=== PATIENT | male | born 1960 | race Caucasian/White ===

== ENCOUNTER 2016-05-15 17:28 | Observation (INO) | payer OTHER ==
[2016-05-15] MEDS ORDERED: IPRATROPIUM-ALBUTEROL 3 ML NEB INHALATION STA (17:45)
--- NOTE | 2016-05-15 17:48 | ED ---
SOB HPI - General Chief Complaint: Shortness of Breath Stated Complaint: EKG Changes,JASON Time Seen by Provider: 05/15/16 17:28 Source: patient, RN/MD, EMS, RN notes reviewed Mode of arrival: EMS - History of Present Illness Initial Comments: This is a 56-year-old male who was brought in by EMS from his doctor's office where he presented with complaints of shortness of breath is been intermittent for the past 2 days EKG was on the office which apparently shows some ST depression in the anterolateral leads. Patient denies any overt chest pain. He was given 4 baby aspirin some nitroglycerin with no change in EKG. He states he does not feel short of breath this time. He is a former smoker quit 4 months ago after 15 years of smoking. Is a family history his dad age of 64 heart attack when he also apparently was morbidly obese. Patient states he is feeling essentially unchanged from when he left the doctor's office at this time. He denies any cough or phlegm production. He's never been diagnosed with COPD or any type of lung disease MD Complaint: shortness of breath - Related Data Home Medications Medication Instructions Recorded Confirmed Aspirin 81 mg PO DAILY 05/15/16 05/15/16 Krill Oil 500 mg PO DAILY 05/15/16 05/15/16 Multivitamins, Thera [Multivitamin] 1 tab PO DAILY 05/15/16 05/15/16 Nitroglycerin Sl Tabs [Nitrostat] 0.4 mg SUBLINGUAL Q5M PRN 05/15/16 05/15/16 Omeprazole [PriLOSEC] 40 mg PO DAILY 05/15/16 05/15/16 Saw Walford 500 mg PO DAILY 05/15/16 05/15/16 Allergies Allergy/AdvReac Type Severity Reaction Status Date / Time No Known Allergies Allergy Unverified 05/15/16 18:12 Review of Systems ROS Statement: Those systems with pertinent positive or pertinent negative responses have been documented in the HPI. ROS Other: All systems not noted in ROS Statement are negative. General Exam - General Exam Comments Initial Comments: Is a well developed well-nourished awake alert oriented 3 male General appearance: alert, in no apparent distress Head exam: Present: atraumatic, normocephalic, normal inspection Eye exam: Present: normal appearance, PERRL, EOMI. Absent: scleral icterus, conjunctival injection, periorbital swelling ENT exam: Present: normal exam, mucous membranes moist Neck exam: Present: normal inspection. Absent: tenderness, meningismus, lymphadenopathy Respiratory exam: Present: normal lung sounds bilaterally, decreased breath sounds. Absent: respiratory distress, wheezes, rales, rhonchi, stridor Cardiovascular Exam: Present: regular rate, normal rhythm, normal heart sounds. Absent: systolic murmur, diastolic murmur, rubs, gallop, clicks GI/Abdominal exam: Present: soft, normal bowel sounds. Absent: distended, tenderness, guarding, rebound, rigid Extremities exam: Present: normal inspection, full ROM, normal capillary refill. Absent: tenderness, pedal edema, joint swelling, calf tenderness Back exam: Present: normal inspection Neurological exam: Present: alert, oriented X3, CN II-XII intact Psychiatric exam: Present: normal affect, normal mood Skin exam: Present: warm, dry, intact, normal color. Absent: rash Course Vital Signs 05/15/16 05/15/16 05/15/16 17:48 17:54 17:55 Temperature 99.1 F Pulse Rate 94 91 Respiratory 22 20 20 Rate Blood Pressure 130/67 130/67 O2 Sat by Pulse 95 95 Oximetry 05/15/16 05/15/16 05/15/16 18:32 18:46 18:55 Temperature Pulse Rate 72 83 76 Respiratory 20 Rate Blood Pressure 124/78 O2 Sat by Pulse Oximetry 05/15/16 19:30 Temperature Pulse Rate 73 Respiratory 16 Rate Blood Pressure 130/79 O2 Sat by Pulse 96 Oximetry Medical Decision Making - Medical Decision Making Patient he gets some relief in the updraft she is feeling better he will however be admitted for evaluation of EKG changes and dyspnea - Lab Data Result diagrams: 05/15/16 17:50 05/15/16 17:50 Lab Results 05/15/16 05/15/16 05/15/16 Range/Units 17:50 17:50 17:50 WBC 9.8 (3.8-10.6) k/uL RBC 4.96 (4.30-5.90) m/uL Hgb 14.8 (13.0-17.5) gm/dL Hct 44.1 (39.0-53.0) % MCV 89.0 (80.0-100.0) fL MCH 29.9 (25.0-35.0) pg MCHC 33.6 (31.0-37.0) g/dL RDW 13.5 (11.5-15.5) % Plt Count 280 (150-450) k/uL Neutrophils % 75 % Lymphocytes % 16 % Monocytes % 6 % Eosinophils % 1 % Basophils % 1 % Neutrophils # 7.3 (1.3-7.7) k/uL Lymphocytes # 1.6 (1.0-4.8) k/uL Monocytes # 0.6 (0-1.0) k/uL Eosinophils # 0.1 (0-0.7) k/uL Basophils # 0.1 (0-0.2) k/uL PT (9.0-12.0) sec INR (<1.1) APTT (22.0-30.0) sec D-Dimer (<0.60) mg/L FEU Sodium 139 (137-145) mmol/L Potassium 4.5 (3.5-5.1) mmol/L Chloride 104 (98-107) mmol/L Carbon Dioxide 24 (22-30) mmol/L Anion Gap 11 mmol/L BUN 15 (9-20) mg/dL Creatinine 0.77 (0.66-1.25) mg/dL Est GFR (MDRD) Af Amer >60 (>60 ml/min/1.73 sqM) Est GFR (MDRD) Non-Af >60 (>60 ml/min/1.73 sqM) Glucose 129 H (74-99) mg/dL Calcium 9.1 (8.4-10.2) mg/dL Magnesium 1.6 (1.6-2.3) mg/dL Total Bilirubin 0.5 (0.2-1.3) mg/dL AST 37 (17-59) U/L ALT 48 (21-72) U/L Alkaline Phosphatase 61 (38-126) U/L Total Creatine Kinase 292 H (55-170) U/L CK-MB (CK-2) 2.1 (0.0-2.4) ng/mL CK-MB (CK-2) Rel Index 0.7 Troponin I <0.012 (0.000-0.034) ng/mL NT-Pro-B Natriuret Pep pg/mL Total Protein 7.0 (6.3-8.2) g/dL Albumin 4.3 (3.5-5.0) g/dL 05/15/16 05/15/16 Range/Units 17:50 17:50 WBC (3.8-10.6) k/uL RBC (4.30-5.90) m/uL Hgb (13.0-17.5) gm/dL Hct (39.0-53.0) % MCV (80.0-100.0) fL MCH (25.0-35.0) pg MCHC (31.0-37.0) g/dL RDW (11.5-15.5) % Plt Count (150-450) k/uL Neutrophils % % Lymphocytes % % Monocytes % % Eosinophils % % Basophils % % Neutrophils # (1.3-7.7) k/uL Lymphocytes # (1.0-4.8) k/uL Monocytes # (0-1.0) k/uL Eosinophils # (0-0.7) k/uL Basophils # (0-0.2) k/uL PT 10.3 (9.0-12.0) sec INR 1.0 (<1.1) APTT 23.4 (22.0-30.0) sec D-Dimer 0.22 (<0.60) mg/L FEU Sodium (137-145) mmol/L Potassium (3.5-5.1) mmol/L Chloride (98-107) mmol/L Carbon Dioxide (22-30) mmol/L Anion Gap mmol/L BUN (9-20) mg/dL Creatinine (0.66-1.25) mg/dL Est GFR (MDRD) Af Amer (>60 ml/min/1.73 sqM) Est GFR (MDRD) Non-Af (>60 ml/min/1.73 sqM) Glucose (74-99) mg/dL Calcium (8.4-10.2) mg/dL Magnesium (1.6-2.3) mg/dL Total Bilirubin (0.2-1.3) mg/dL AST (17-59) U/L ALT (21-72) U/L Alkaline Phosphatase (38-126) U/L Total Creatine Kinase (55-170) U/L CK-MB (CK-2) (0.0-2.4) ng/mL CK-MB (CK-2) Rel Index Troponin I (0.000-0.034) ng/mL NT-Pro-B Natriuret Pep 18 pg/mL Total Protein (6.3-8.2) g/dL Albumin (3.5-5.0) g/dL - EKG Data -: EKG Interpreted by Me EKG shows normal: sinus rhythm (EKG shows sinus rhythm of 87 appear of 18 QRS duration 98 daily since QTC of 382/459 incomplete right bundle-branch block nonspecific ST configuration. This is compared with the one submitted from EMS and also submitted from the office. The changes are still present as though seen in the office EKG and EMS EKG.) - Radiology Data Radiology results: report reviewed (Review the x-ray shows no acute findings.), image reviewed Disposition Clinical Impression: Atypical chest pain, Bronchospasm, ST segment changes on electrocardiogram Disposition: ADMITTED IP TO THIS [facility] Condition: Stable
[2016-05-15 18:02] LABS: Basophils # (A) 0.1 k/uL (0-0.2); Basophils % (A) 1 %; CH 30.6; CHCM 34.5; Eosinophils # (A) 0.1 k/uL (0-0.7); Eosinophils % (A) 1 %; HCT 44.1 % (39.0-53.0); HDW 2.62; HGB 14.8 gm/dL (13.0-17.5); Luc # (Auto) 0.22; Luc % (Auto) 2; Lymphocytes # (A) 1.6 k/uL (1.0-4.8); Lymphocytes % (A) 16 %; MCH 29.9 pg (25.0-35.0); MCHC 33.6 g/dL (31.0-37.0); Mean Platelet Volume 7.2; Monocytes # (A) 0.6 k/uL (0-1.0); Monocytes % (A) 6 %; Neutrophils # (A) 7.3 k/uL (1.3-7.7); Neutrophils % (A) 75 %; RBC 4.96 m/uL (4.30-5.90); RDW 13.5 % (11.5-15.5); WBC 9.8 k/uL (3.8-10.6); WBC (Perox) 10.13
[2016-05-15 18:10] LABS: ALT 48 U/L (21-72); AST 37 U/L (17-59); Alkaline Phosphatase 61 U/L (38-126); Anion Gap 11 mmol/L; Blood Urea Nitrogen 15 mg/dL (9-20); Calcium 9.1 mg/dL (8.4-10.2); Carbon Dioxide 24 mmol/L (22-30); Chloride 104 mmol/L (98-107); Glucose 129 mg/dL (74-99); Magnesium 1.6 mg/dL (1.6-2.3); Non-African American GFR(MDRD) >60 (>60 ml/min/1.73 sqM); Potassium 4.5 mmol/L (3.5-5.1); Sodium 139 mmol/L (137-145); Total Bilirubin 0.5 mg/dL (0.2-1.3)
--- NOTE | 2016-05-15 18:12 | XR ---
EXAMINATION TYPE: XR chest 2V DATE OF EXAM: 05/15/2016 6:03 PM COMPARISON: NONE HISTORY: Difficulty breathing and short of breath TECHNIQUE: Frontal and lateral views of the chest are obtained. FINDINGS: Heart and mediastinum are normal. Lungs are clear. Diaphragm is normal. There are chest le ads. Bony thorax is intact. IMPRESSION: No active cardiopulmonary disease. Normal heart.
[2016-05-15 18:16] LABS: Partial Thromboplastin Time 23.4 sec (22.0-30.0); Prothrombin Time 10.3 sec (9.0-12.0)
[2016-05-15 18:24] LABS: Creatine Kinase 292 U/L (55-170)
[2016-05-15 18:36] LABS: Creatine Kinase MB 2.1 ng/mL (0.0-2.4); Troponin I <0.012 ng/mL (0.000-0.034)
[2016-05-15] MEDS ORDERED: HEPARIN SODIUM,PORCINE 5,000 UNIT/ML 1 ML VIAL IV ONE (19:49)
[2016-05-15] MEDS ORDERED: NITROGLYCERIN SL TABS 0.4 MG TAB SUBLINGUAL PRN (19:49)
[2016-05-15] MEDS ORDERED: HEPARIN SODIUM,PORCINE/D5W PMX 25,000 UNIT in DEXTROSE/WATER 1 500ML.BAG IV SCH (20:00)
[2016-05-15] MEDS: SODIUM CHLORIDE 0.9% 1,000 ML IV SCH (20:28)
[2016-05-15 21:18] VITALS: BMI 26.6
[2016-05-16 00:27] LABS: Creatine Kinase 223 U/L (55-170)
[2016-05-16 00:40] LABS: Creatine Kinase MB 1.5 ng/mL (0.0-2.4); Troponin I <0.012 ng/mL (0.000-0.034)
[2016-05-16] MEDS: NITROGLYCERIN OINT 1 INCH/GM PACKET TOPICAL SCH ×5 (02:59→23:07)
[2016-05-16 03:18] LABS: Cholesterol 166 mg/dL (<200); HDL Cholesterol 62 mg/dL (40-60); Triglycerides 44 mg/dL (<150)
[2016-05-16] MEDS ORDERED: HEPARIN SODIUM,PORCINE 5,000 UNIT/ML 1 ML VIAL IV PRN (04:19)
[2016-05-16 06:46] LABS: Creatine Kinase 210 U/L (55-170)
[2016-05-16 06:58] LABS: Creatine Kinase MB 1.3 ng/mL (0.0-2.4); Troponin I <0.012 ng/mL (0.000-0.034)
--- NOTE | 2016-05-16 10:17 | ECHOF ---
Referral Reason:Physical chest pain, EKG changes to be done in a.m MEASUREMENTS -------- HEIGHT: 170.2 cm WEIGHT: 77.1 kg BP: 108/62 RVIDd: 2.4 cm (< 3.3) IVSd: 0.8 cm (0.6 - 1.1) LVIDd: 4.8 cm (3.9 - 5.3) LVPWd: 0.9 cm (0.6 - 1.1) IVSs: 1.7 cm LVIDs: 2.3 cm LVPWs: 1.9 cm LA Diam: 2.9 cm (2.7 - 3.8) LAESV Index (A-L): 13.17 ml/m Ao Diam: 2.7 cm (2.0 - 3.7) AV Cusp: 2.1 cm (1.5 - 2.6) LA Diam: 2.4 cm (2.7 - 3.8) MV EXCURSION: 11.800 mm (> 18.000) MV EF SLOPE: 93 mm/s (70 - 150) EPSS: 0.5 cm MV E Marino: 0.62 m/s MV DecT: 305 ms MV A Marino: 0.80 m/s MV E/A Ratio: 0.77 FINDINGS -------- Sinus rhythm. This was a technically good study. Left ventricular wall thickness is normal. Overall left ventricular systolic function is low-normal with, an EF between 50 - 55 %. The right ventricle is normal in size. Normal LA size by volume 22+/-6 ml/m2. The right atrium is normal in size. Aortic valve is trileaflet and is mildly thickened. The mitral valve leaflets are mildly thickened. Mild mitral annular calcification present. Trace tricuspid regurgitation present. Pulmonic valve appears structurally normal. The aortic root size is normal. Normal inferior vena cava with normal inspiratory collapse consistent with estimated right atrial pressure of 5 mmHg. Echo free space may represent effusion or a pericardial fat pad. CONCLUSIONS -------- 1. Sinus rhythm. 2. Mild mitral annular calcification present. 3. Trace tricuspid regurgitation present. 4. Pulmonic valve appears structurally normal. 5. The aortic root size is normal. 6. Normal inferior vena cava with normal inspiratory collapse consistent with estimated right atrial pressure of 5 mmHg. 7. Echo free space may represent effusion or a pericardial fat pad. 8. This was a technically good study. 9. Left ventricular wall thickness is normal. 10. Overall left ventricular systolic function is low-normal with, an EF between 50 - 55 %. 11. The right ventricle is normal in size. 12. Normal LA size by volume 22+/-6 ml/m2. 13. The right atrium is normal in size. 14. Aortic valve is trileaflet and is mildly thickened. 15. The mitral valve leaflets are mildly thickened. FI[employer] HARVEST CONTRACTOR: Natalya Graf RDCS
--- NOTE | 2016-05-16 10:51 | CONS ---
DATE OF CONSULTATION: Mr. Wadsworth is a 56-year-old gentleman who is seen for cardiac evaluation. This patient came to the emergency room with the complaint of shortness of breath over the last 2 to 3 days. Patient gives a history that he has a history of claustrophobia and whenever he gets into elevator or some other close space he will get short of breath. EKG showed some ST segment changes so patient came over here. He did not complain of any chest pain. Patient has a history of smoking for 15 years and he quit 4 months ago. His dad into the age of 64 from a heart attack. Patient denies any history of diabetes, hypertension, or hyperlipidemia. Home medications include aspirin, Prilosec, and Nitrostat. Review of systems is otherwise unremarkable. Physical examination at present reveals a 56-year-old gentleman who does not appear to be in any acute distress. Blood pressure is 122/74 mmHg. HEENT examination is negative. Neck is supple. There is no increase in jugular venous pressure. Both the carotid pulses are felt. There is no bruit. Chest is symmetrical. HEART: The PMI is not felt. First and second heart sounds are normal. There is no evidence of any murmur. Lungs are clinically clear to auscultation and percussion. Abdomen is soft. Liver and spleen are not enlarged. Bowel sounds are heard. EXTREMITIES: Peripheral pulsations are 2+. There is no evidence of any edema or phlebitis. Neurological examination is grossly normal. EKG shows a normal sinus rhythm with some nonspecific ST-T changes. Patient's cardiac enzymes are normal. Patient's LDL level is 95, HDL level is 62. FINAL IMPRESSION: Symptoms of shortness of breath, not definitely related to exertion, rule out any evidence of any significant coronary artery disease. RECOMMENDATIONS: Patient will be evaluated with a stress echocardiographic study. If the stress echocardiographic study is normal, patient can be discharged home.
--- NOTE | 2016-05-16 11:53 | ECHOS ---
DATE OF SERVICE: 05/16/2016 AGE: 56Y SEX: M HT: 67 WT: 170 lbs. Protocol Ari: X Others: Stress Echo Stage: II Dur. of Exercise: 5:30 *Heart Rate Blood Pressure *Rest: 100 Rest: 112/52 * *Max. Achieved: 148 Maximum BP: 175/69 85% PMHR: 139 100% PMHR: 164 *METS: 6.9 INDICATIONS: Shortness of breath. MEDICATIONS: Omeprazole and aspirin. Baseline EKG shows sinus rhythm, normal axis, normal intervals. Patient exercised on Ari protocol for a total of 5-1/2 minutes achieving 7 METs, 90% of predicted maximal heart rate without chest pain. At peak exercise, patient developed worsening shortness of breath and [address] segment depression in the inferolateral leads. Baseline echo shows normal left ventricular size, wall motion and systolic function. Postexercise, there is hypokinesis involving inferior wall suggestive of stress-induced ischemia in right coronary artery distribution. CONCLUSIONS: 1. Poor exercise tolerance. 2. Abnormal stress test by EKG criteria. 3. Abnormal stress echocardiogram showing ischemia involving the right coronary artery.
[2016-05-16] MEDS ORDERED: NITROGLYCERIN SL TABS 0.4 MG TAB SUBLINGUAL PRN (12:40)
[2016-05-16] MEDS ORDERED: ALPRAZolam 0.5 MG TAB PO PRN (12:40)
[2016-05-16] MEDS ORDERED: ASPIRIN 325 MG TAB PO STA (12:40)
[2016-05-16] MEDS ORDERED: ALPRAZolam 0.25 MG TAB PO PRN (12:40)
[2016-05-16] MEDS ORDERED: SODIUM CHLORIDE 0.9% 1,000 ML in EMPTY BAG 1 BAG IV ONE (12:40)
[2016-05-16] MEDS ORDERED: ATORVASTATIN 80 MG TAB PO STA (12:40)
[2016-05-16] MEDS: ASPIRIN 325 MG TAB PO SCH (13:27)
[2016-05-16] MEDS ORDERED: LIDOCAINE 2% INJ 20 MG/ML (20 ML MDV) ONE (14:00)
[2016-05-16] MEDS ORDERED: MIDAZOLAM 2 MG/2 ML VIAL ONE (14:08)
[2016-05-16] MEDS ORDERED: diphenhydrAMINE 50 MG/ML 1 ML VIAL ONE (14:08)
[2016-05-16] MEDS ORDERED: fentaNYL (PF) 50 MCG/ML 2 ML AMP ONE (14:08)
[2016-05-16] MEDS ORDERED: SODIUM CHLORIDE 0.9% 1,000 ML IV ONE (14:42)
[2016-05-16] MEDS ORDERED: MIDAZOLAM 2 MG/2 ML VIAL IVP ONE (14:48)
[2016-05-16] MEDS ORDERED: fentaNYL (PF) 50 MCG/ML 2 ML AMP IV ONE (14:51)
[2016-05-16] MEDS ORDERED: LIDOCAINE 2% INJ 20 MG/ML SQ ONE (14:55)
[2016-05-16] MEDS ORDERED: IOHEXOL 350 MG/ML 100 ML BOTTLE INJ ONE (15:10)
[2016-05-16] MEDS ORDERED: RX INFO: IV CONTRAST WAS GIVEN 1 EACH MISC MISCELLANE PRN (15:12)
--- NOTE | 2016-05-16 17:36 | CC ---
DATE OF SERVICE: This patient was admitted with symptoms of intermittent shortness of breath, underwent a stress test. Stress test showed a ST segment depression suggestive of ischemia and there was inferior wall motion abnormality suggestive of ischemia. In view of that, the patient was recommended to have a cardiac catheterization for definitive diagnosis. PROCEDURE: The right groin was prepped and draped in the usual manner and the skin was infiltrated with 2% Xylocaine. The right femoral artery was entered using Seldinger technique. A #6 [place] sheath was placed in. Selective coronary angiography was then performed in multiple projections and the left ventricular pressures were obtained. Sheath was removed and good hemostasis was achieved with the use of Angio-Seal. HEMODYNAMICS: Left ventricular end-diastolic pressure is 16 mmHg and no gradient was noted across the aortic valve. LEFT MAIN: Left main coronary artery is normal and patent. LEFT ANTERIOR DESCENDING CORONARY ARTERY: LAD is a good caliber blood vessel and gives rise to good-sized diagonal branch. There is a mild irregularity in the LAD. CIRCUMFLEX CORONARY ARTERY: Circumflex coronary artery gives wishes to good-sized obtuse marginal branches. Circumflex coronary artery and its branches are normal. RIGHT CORONARY ARTERY: Right coronary artery is normal. FINAL IMPRESSION: This study reveals minimal irregularity in LAD. Circumflex and right coronary arteries are normal. RECOMMENDATIONS: Continue medical treatment and coronary risk factor modification.
--- NOTE | 2016-05-16 17:55 | HP ---
DATE OF ADMISSION: 05/15/2016 HISTORY AND PHYSICAL/DISCHARGE SUMMARY: This is a 56-year-old gentleman came into the emergency room with complaints of difficulty in breathing and where he feels like the room is closed in upon him. Patient has a history of claustrophobia and states that feeling was similar to that. Has happened multiple times in the last few days and hence came into the emergency room with concern for heart attack. In the emergency room, patient underwent echocardiogram. It did show sinus tachycardia with right axis deviation and incomplete right bundle branch block. Patient thereafter was seen by the coning machine operator. Underwent echocardiogram, which showed EF of 55% to 60% on no other abnormalities were noted. Patient underwent a stress echo however, due to poor exercise tolerance, patient was thereafter taken to cardiac catheterization lab. During the time of my examination, the patient is seen after cardiac cath. The patient denies having any pain in his groin. Denies having chest pain, difficulty in breathing, nausea, vomiting. His episode of where the room is closing upon him and difficulty breathing has not happened in the last 2 hours. Patient states that he does have a remote history of smoking, has not smoked in over 4 months. Denies having any cough, fever, chills, nausea, vomiting. Patient states that he was told his TSH is high. Patient states that he has been excessively worrying about driving to [place] tomorrow and then he was also worried about his granddaughter moving out of the house. He has a lot of stresses at home and at work. Past medical history includes history of ( ) and GERD. PAST SURGICAL HISTORY: Left shoulder surgery. REVIEW OF SYSTEMS: Fourteen-point review of system was done; none pertinent other than was mentioned. ALLERGIES: No known drug allergies. MEDICATIONS: Include: 1. Aspirin. 2. Prilosec. FAMILY HISTORY: Not pertinent to current admission. Denies having premature heart disease or strokes. PHYSICAL EXAMINATION: VITAL SIGNS: Temperature 98.3, heart rate is 80. Her respiratory rate is 18, blood pressure 104/73 GENERAL: Alert and oriented x3, in no distress. HEART: S1, S2 heard. Regular rate and rhythm. No murmurs appreciated. Neck is supple. No JVD. LUNGS: Good air movement. Clear to auscultation. No rhonchi or wheezing noted. ABDOMEN: Soft, nontender, no organomegaly. LOWER EXTREMITIES: No edema noted. LABORATORY DATA: Sodium 139, potassium 4.5, chloride 104, bicarb 24, BUN 15, creatinine 0.77, hemoglobin 14.8, hematocrit 44.1, platelets of 280. ASSESSMENT AND PLAN: 1. Atypical dyspnea, chest pain equivalent. Cardiac catheterization was negative. 2. The patient likely has anxiety. 3. History of gastroesophageal reflux disease. PLAN: 1. Patient will be given Ativan. I did discuss to use medication to get out of the episode of anxiety/panic attack. 2. Patient may benefit from being started on SSRI. However, will defer this to Dr. Nakia Sánchez. 3. Apparently the patient was informed that his thyroid level was not in the normal range; however, will defer this to Dr. Sánchez for ongoing care as well as we do not have thyroid level at this time.
[2016-05-16] MEDS: SODIUM CHLORIDE 0.9% 1,000 ML IV SCH (20:49)
[2016-05-16] MEDS ORDERED: MELATONIN 3 MG TABLET PO SCH (21:00)
[2016-05-17 06:04] VITALS: RESP 18
[2016-05-17] MEDS: NITROGLYCERIN OINT 1 INCH/GM PACKET TOPICAL SCH ×2 (06:05→12:53)
[2016-05-17 08:23] VITALS: TEMP 98.4
[2016-05-17] MEDS: ASPIRIN 325 MG TAB PO SCH (08:40)
[2016-05-17 12:37] VITALS: BP 115/77; PULSE 68
--- NOTE | 2016-05-17 15:31 | DS ---
DATE OF ADMISSION: 05/15/2016 DATE OF DISCHARGE: 05/17/2016 This is a 56-year-old gentleman who was admitted to the hospital with complaints of dyspnea associated with some chest pain. Patient stated that it felt like it was some degree of claustrophobia, which he does have a history of. Patient states that he has had significant anxiety in the recent few weeks with multiple issues at home and at work. Patient states that he does tend to overthink on a similar topic and has had issues with mild anxiety in the past as well. In the ER on initial evaluation, patient's EKG was noted to have some right axis deviation with an incomplete right bundle branch block. Cardiac enzymes x3 were negative. Initial echocardiogram did not reveal wall motion abnormalities and an ejection fraction of 55% to 60%. Patient, however, was recommended to undergo a stress echo due to poor exercise tolerance and patient getting another episode of dyspnea during the stress echo. Patient underwent a cardiac catheterization which revealed mild disease. I did discuss patient's issues with him and stated that his symptoms are very consistent with almost a panic attack kind of scenario. Stated that his excessive worrying would be helped with an agent like SSRI; however, I would like to defer that to Dr. Sánchez. PHYSICAL EXAM: GENERAL: Appears alert, oriented x3. NECK: Supple. No JVD. HEENT: Atraumatic, normocephalic. Pupils are equal, round and reactive to light and accommodation. CHEST: S1, S2 heard. Regular rate and rhythm. No murmurs appreciated. ABDOMEN: Soft, nontender. No organomegaly. Bowel sounds intact. LUNGS: Good air entry. Clear to auscultation. LOWER EXTREMITIES: No edema noted. SITE OF THE CARDIAC CATH: Groin appears within normal limits. DISCHARGE DIAGNOSES: 1. Atypical chest pain. ACS was ruled out. Cardiac cath is negative. 2. Panic attacks/anxiety? 3. Dysthymia. 4. Hypothyroidism with a TSH around 15. 5. History of gastroesophageal reflux disease. 6. Long history of tobacco use. PLAN: Patient was started on Synthroid 75 mcg. Patient was given a prescription for Ativan and recommended pros and cons of using Ativan and restrictions in regards to driving. Patient was recommended to follow up with Dr. Sánchez within a week.
--- NOTE | 2016-05-17 16:06 | PN ---
This patient was admitted yesterday with symptoms of exertional shortness of breath. The patient underwent a cardiac catheterization, which did not show any significant coronary artery disease. The patient's exact symptoms of shortness of breath are unclear. He does have a history of smoking. We will recommend to do pulmonary function test as an outpatient. Patient's vital signs are stable. First and second heart sounds are normal. Lungs are clear to auscultation and percussion. Right groin is normal. Patient will be discharged out and will follow up as an outpatient.
== END 2016-05-17 12:53 | disposition home or self-care (01) ==
LOC: EC 17:28 → 3OBS 19:55
PROVIDERS: ADMIT Hospitalist; ATTEND Hospitalist
DX: R07.89 Other chest pain (principal); F41.0 Panic disorder [episodic paroxysmal anxiety]; F34.1 Dysthymic disorder; E03.9 Hypothyroidism, unspecified; K21.9 Gastro-esophageal reflux disease without esophagitis; R06.00 Dyspnea, unspecified; R06.02 Shortness of breath; R94.31 Abnormal electrocardiogram [ECG] [EKG]; J98.01 Acute bronchospasm; Z79.82 Long term (current) use of aspirin; Z79.899 Other long term (current) drug therapy; Z87.891 Personal history of nicotine dependence; Z82.49 Family history of ischemic heart disease and other diseases of the circulatory system
CPT/HCPCS: 96376 ×3; 99285 ×2; 93005 ×2; 96365; 96366 ×2; 36415; 94640; 93017; 93306; 93350; 93458; 85379; 84439; 83880; 80061; 80053; 84443; 82550 ×2; 82553 ×2; 83735; 84484 ×2; 85025; 85610; 85730 ×2; 71020; G0378 ×3; C1760; C1894; C1769; J2001; J2250; J1644 ×3; Q9967; J3010

== ENCOUNTER 2016-05-18 07:30 | Emergency (ER) | payer OTHER ==
--- NOTE | 2016-05-18 08:05 | ED ---
Recheck HPI - General Chief Complaint: Recheck/Abnormal Lab/Rx Stated Complaint: post op infection Time Seen by Provider: 05/18/16 07:53 Source: patient, RN notes reviewed Mode of arrival: ambulatory Limitations: no limitations - History of Present Illness Initial Comments: This is a 56-year-old male who had a cardiac catheterization done 2 days ago who presents with complaints of right groin pain and ecchymosis. He denies any fevers chills or sweats no chest pain or shortness of breath or other symptoms. MD Complaint: wound re-check - Related Data Home Medications Medication Instructions Recorded Confirmed Aspirin 81 mg PO DAILY 05/15/16 05/18/16 Krill Oil 500 mg PO DAILY 05/15/16 05/18/16 Multivitamins, Thera [Multivitamin] 1 tab PO DAILY 05/15/16 05/18/16 Nitroglycerin Sl Tabs [Nitrostat] 0.4 mg SUBLINGUAL Q5M PRN 05/15/16 05/18/16 Omeprazole [PriLOSEC] 40 mg PO DAILY 05/15/16 05/18/16 Saw [place] 500 mg PO DAILY 05/15/16 05/18/16 Previous Rx's Medication Instructions Recorded LORazepam [Ativan] 0.5 mg PO TID PRN #30 tab 05/16/16 Levothyroxine Sodium [Synthroid] 75 mcg PO DAILY #30 tab 05/17/16 Allergies Allergy/AdvReac Type Severity Reaction Status Date / Time No Known Allergies Allergy Verified 05/18/16 07:34 Review of Systems ROS Statement: Those systems with pertinent positive or pertinent negative responses have been documented in the HPI. ROS Other: All systems not noted in ROS Statement are negative. Past Medical History Past Medical History: GERD/Reflux History of Any Multi-Drug Resistant Organisms: None Reported Past Surgical History: Heart Catheterization, Orthopedic Surgery Additional Past Surgical History / Comment(s): left knee arthroscopy and left shoulder surgery Past Anesthesia/Blood Transfusion Reactions: No Reported Reaction Past Psychological History: No Psychological Hx Reported Smoking Status: Former smoker Past Alcohol Use History: None Reported Past Drug Use History: None Reported - Past Family History Father Family Medical History: Coronary Artery Disease (CAD), Myocardial Infarction ([place] ) Additional Family Medical History / Comment(s): at age 64 from [place] with morbid obesity General Exam - General Exam Comments Initial Comments: This is a well-developed well-nourished awake alert oriented 3 male Limitations: no limitations General appearance: alert, in no apparent distress Head exam: Present: atraumatic, normocephalic, normal inspection Eye exam: Present: normal appearance, EOMI Neck exam: Present: normal inspection GI/Abdominal exam: Present: soft. Absent: bruit, pulsatile mass, hernia Extremities exam: Present: full ROM, tenderness, normal capillary refill, other (Examination the right groin reveals ecchymosis above and below the inguinal ligament. No definite pulsation no thrill or bruits appreciated. The genitalia appears be within normal limits.) Neurological exam: Present: alert, oriented X3, CN II-XII intact Psychiatric exam: Present: normal affect, normal mood Skin exam: Present: warm, dry, other (Ecchymosis as stated above) Course Vital Signs 05/18/16 07:32 Temperature 99.5 F Pulse Rate 76 Respiratory 20 Rate Blood Pressure 122/72 O2 Sat by Pulse 98 Oximetry Medical Decision Making - Medical Decision Making I did discuss the findings with the patient and his patient will be discharged home with care as are the described for him. The presentation is consistent with a post-catheterization hematoma no evidence of any other untoward effects - Radiology Data Radiology results: report reviewed (I did review the imaging and report no acute findings other than the localized hematoma.), image reviewed Disposition Clinical Impression: Groin hematoma Disposition: HOME SELF-CARE Condition: Good Instructions: Hematoma (ED)
--- NOTE | 2016-05-18 09:32 | US ---
EXAMINATION TYPE: US lower ext pseudo artery RT DATE OF EXAM: 05/18/2016 9:22 AM COMPARISON: NONE CLINICAL HISTORY: Pain. Pt states increased bruising and swelling right groin s/p heart cath 2 days a go IMPRESSION: No evidence of pseudoaneurysm, hematoma, or AV fistula within right groin
[2016-05-18 09:59] VITALS: BP 118/78; PULSE 77; RESP 17; TEMP 98.7
== END 2016-05-18 09:58 | disposition home or self-care (01) ==
LOC: EC 07:30
DX: I97.630 Postprocedural hematoma of a circulatory system organ or structure following a cardiac catheterization (principal); Z79.82 Long term (current) use of aspirin; Z79.899 Other long term (current) drug therapy; K21.9 Gastro-esophageal reflux disease without esophagitis; Z87.891 Personal history of nicotine dependence; Z82.49 Family history of ischemic heart disease and other diseases of the circulatory system
CPT/HCPCS: 93975; 99283

== ENCOUNTER → 2016-07-23 | Outpatient (CLI) | payer OTHER ==
--- NOTE | 2016-07-24 07:43 | US ---
EXAMINATION TYPE: US abdomen complete DATE OF EXAM: 07/23/2016 12:30 PM COMPARISON: NONE CLINICAL HISTORY: R10.84 Abd Pain. chest pain EXAM MEASUREMENTS: Liver Length: 12.4 cm Gallbladder Wall: 0.2 cm CBD: 0.4 cm Spleen: 9.3 cm Right Kidney: 10.8 x 5.8 x 5.9 cm Left Kidney: 10.7 x 6.3 x 6.1 cm Pancreas: not seen due to midline bowel gas Liver: limited vis to intercostal window, visualized portions wnl Gallbladder: No stones seen Evidence for sonographic Butler's sign: No CBD: wnl Spleen: wnl Right Kidney: No hydronephrosis or masses seen Left Kidney: No hydronephrosis or masses seen Upper IVC: wnl Abd Aorta: proximal portion not seen due to midline bowel gas The liver is homogenous. The intrahepatic portion of the IVC and proximal abdominal aorta are within normal limits. There is no evidence of cholelithiasis. Common bile duct is unremarkable. The visu alized portions of the pancreas are homogenous. The spleen is unremarkable. Kidneys are symmetric a nd free of hydronephrosis. No renal lesions are seen. IMPRESSION: 1. Examination limited due to bowel gas. 2. No suspicious acute changes identified.
== END | disposition home or self-care (01) ==
LOC: RADUSWWP 12:07
PROVIDERS: ATTEND Internal Medicine
DX: R10.84 Generalized abdominal pain (principal)
CPT/HCPCS: 76700

== ENCOUNTER → 2016-07-29 | Outpatient (CLI) | payer OTHER ==
--- NOTE | 2016-07-29 21:02 | NM ---
EXAMINATION TYPE: NM hepatobiliary w EF DATE OF EXAM: 07/29/2016 4:58 PM COMPARISON: NONE HISTORY: TECHNIQUE: After the intravenous administration of 5.49 mCi Tc 99m Mebrofenin hepatobiliary scintigra phy is performed. Immediate images post injection. FINDINGS: There is satisfactory initial accumulation of tracer by the liver. The gallbladder is visualized wit hin 10 minutes. The small bowel activity is noted within 90 minutes. At one hour 8 ounces of oral e nsure plus is given to mimic CCK and gallbladder ejection fraction is calculated at 78 %, in the norm al range. Therefore there is no scintigraphic evidence of cystic or common bile duct obstruction to suggest acute cholecystitis or gallbladder dyskinesia. IMPRESSION: No focal liver defect. No evidence of cystic duct or common bile duct obstruction. Normal gallbladder ejection fraction.
== END ==
LOC: RADNMMAIN 14:49
PROVIDERS: ATTEND Internal Medicine
DX: R10.84 Generalized abdominal pain (principal)
CPT/HCPCS: 78226; A9537

== ENCOUNTER → 2017-01-22 | Outpatient (CLI) | payer OTHER ==
--- NOTE | 2017-01-23 09:24 | CTL ---
EXAMINATION TYPE: CT Low Dose Lung DATE OF EXAM ORDERED: 01/22/2017 HISTORY: . Lung cancer screening CT DLP: [address] CTDI: 2.6 mGy Automated exposure control for dose reduction was used. SCREENING VISIT: Initial COMPARISON: None TECHNIQUE: Low dose computed tomography scan was performed through the chest at 1 mm thick sections a nd reconstructed images in the coronal plane at [address] DIAGNOSTIC QUALITY: Satisfactory FINDINGS: LUNG NODULES: None. There is a 0.3 cm nodule within the right middle lobe. Series 3 image 33 lung windows. There is a 0.4 cm nodule within the lingula. Series 3 image 29 lung windows. LUNGS: COPD: Severity: None Fibrosis: Severity: None Lymph nodes: None Other findings: None RIGHT PLEURAL SPACE: Effusion: None Calcification: None Thickening: None Pneumothorax: None LEFT PLEURAL SPACE: Effusion: None Calcification: None Thickening: None Pneumothorax: None HEART: Heart Size: Normal Coronary calcification: None Pericardial effusion: None OTHER FINDINGS: Upper abdomen: Normal Bony thorax: Normal Supraclavicular region: No suspicious adenopathy is evident. A few scattered small lymph nodes are in the axillary regions, not enlarged by CT criteria. Other: The ascending thoracic aorta at the level the main pulmonary artery is 3.2 cm patent main pulm onary artery the bifurcation is 2.2 cm. IMPRESSION: 1. Couple of punctate nodular densities within the mid lungs bilaterally. FOLLOW UP CT CHEST RECOMMENDATION: Follow-up screening chest [address] LUNG RAD: Lung-Rad 2 Benign Appearance or Behavior
== END | disposition home or self-care (01) ==
LOC: RADCTMAIN 18:35
PROVIDERS: ATTEND Internal Medicine Sleep Medicine
DX: Z12.2 Encounter for screening for malignant neoplasm of respiratory organs (principal); J98.4 Other disorders of lung; Z87.891 Personal history of nicotine dependence

== ENCOUNTER → 2019-03-24 | Outpatient (CLI) | payer OTHER ==
--- NOTE | 2019-03-24 16:27 | XR ---
EXAMINATION TYPE: XR knee limited LT DATE OF EXAM: 03/24/2019 CLINICAL HISTORY: Left knee pain after fall injury 2 days ago. TECHNIQUE: Frontal and lateral views of the left knee are obtained. COMPARISON: None. FINDINGS: There is no acute fracture/dislocation evident in left knee mild to moderate tricompartmen t joint space loss. The overlying soft tissue appears unremarkable. IMPRESSION: There is no acute fracture or dislocation in the left knee.
== END | disposition home or self-care (01) ==
LOC: RADXRYALE 16:01
PROVIDERS: ATTEND Internal Medicine
DX: M25.562 Pain in left knee (principal)

== ENCOUNTER → 2022-10-10 | Outpatient (CLI) | payer BC ==
--- NOTE | 2022-10-10 18:10 | CA ---
Exercise Stress Test Report Name: Ernie Wadsworth Exam Date: 10/10/2022 09:15 Exam Location: [facility] Stress Ht (in): 67 Wt (lb): 190 BSA: 1.98 Ordering Phys: Nakia Sánchez MD Referring Phys: SRUTHI,, Technologist: Fransisco Ledbetter Age: 62 Gender: M : 1960 Procedure CPT: Indications: R07.89 other chest pain ICD-10 Codes: Patient History: DIFFICULTY IN BREATHING, FAMILY HX OF HEART DISEASE, PRIOR CARDIAC CATH, FORMER SMOKER - QUIT 7 YEARS (1 PPD X 25 YEARS) Medications: OMEPRAZOLE,,,,,, LEVOTHYROXINE,,,,,, MULTIVITAMIN,,,,,, ASA 81 mg,,,,,, KRILL OIL,,,,, Meds past 24 hrs: Pretest Chest Pain: STRESS TEST Ari Protocol Exercise Duration (min:sec): 09:[address] Depressions (mm): 0 Angina Score: 0 Hooker Score: 9 Resting HR (bpm): 84 Peak HR (bpm): 135 Resting BP (mmHg): 102 / 78 Peak BP (mmHg): 166 / 82 MPHR: 158 Target HR: 134 % MPHR: 85 METS: 10.3 Total Dose: Peak Dose: Atropine: Double Product: 84054 BP Response: Stress Termination: TARGET HR REACHED/MAX EXERTION Stress Symptoms: NO SYMPTOMS Stress Summary: The patient's target heart rate was achieved, The hemodynamic response to exercise was normal ECG ANALYSIS Resting ECG: Sinus rhythm. Normal conduction. No arrhythmias. Normal repolarization. Stress ECG: No ECG evidence of ischemia with exercise. CONCLUSIONS Patient falls into low-risk group (DTS >= +5). This associates the patient with an annual CV mortality <= 0.5%. 1. Good exercise tolerance 2. Normal electrocardiographic stress test with no evidence of stress induced ischemia Dr. Amita Rasmussen MD (Electronically Signed) Final Date: 10 October 2022 18:09
--- NOTE | 2022-10-11 12:11 | CA ---
Transthoracic Echo Report Name: Ernie Wadsworth Age: 62 Gender: M : 1960 Exam Date: 10/10/2022 08:31 Exam Location: [facility] Echo Ht (in): 67 Wt (lb): 190 Ordering Physician: Nakia Sánchez MD Attending/Referring Phys: Systems Programmer Beatriz Morel RDCS Procedure CPT: Indications: R07.89 other chest pain Cardiac Hx: Technical Quality: Fair Contrast 1: Total Dose (mL): Contrast 2: Total Dose (mL): MEASUREMENTS (Male / Female) Normal Values 2D ECHO LV Diastolic Diameter PLAX 4.3 cm 4.2 - 5.9 / 3.9 - 5.3 cm LV Systolic Diameter PLAX 3.0 cm IVS Diastolic Thickness 1.0 cm 0.6 - 1.0 / 0.6 - 0.9 cm LVPW Diastolic Thickness 1.1 cm 0.6 - 1.0 / 0.6 - 0.9 cm LV Relative Wall Thickness 0.5 RV Internal Dim ED PLAX 3.8 cm M-MODE Aortic Root Diameter MM 3.5 cm LA Systolic Diameter MM 4.0 cm LA Ao Ratio MM 1.1 AV Cusp Separation MM 1.7 cm DOPPLER AV Peak Velocity 128.4 cm/s AV Peak Gradient 6.6 mmHg AV Mean Velocity 94.5 cm/s AV Mean Gradient 3.9 mmHg AV Velocity Time Integral 31.4 cm LVOT Peak Velocity 101.2 cm/s LVOT Peak Gradient 4.1 mmHg Mitral E Point Velocity 43.8 cm/s Mitral A Point Velocity 65.9 cm/s Mitral E to A Ratio 0.7 MV Deceleration Time 305.2 ms MV E' Velocity 8.0 cm/s Mitral E to MV E' Ratio 5.5 TR Peak Velocity 184.5 cm/s TR Peak Gradient 13.6 mmHg Right Ventricular Systolic Press 23.9 mmHg FINDINGS Left Ventricle Normal Left ventricular size, wall thickness, systolic function with no obvious regional wall motion abnormalities. Normal Left ventricular diastolic filling pattern. Left ventricular ejection fraction is estimated at 55-60 %. Right Ventricle Mild right ventricular dilatation. Right ventricular systolic pressure within normal limits. Right Atrium Normal right atrial size. Left Atrium Normal left atrial size. Mitral Valve Structurally normal mitral valve. No mitral stenosis, or prolapse.trace to mild mitral regurgitation. Aortic Valve Trileaflet aortic valve. No aortic valve stenosis or regurgitation. Tricuspid Valve Structurally normal tricuspid valve. Mild tricuspid regurgitation. Pulmonic Valve Structurally normal pulmonic valve. Pericardium No pericardial effusion.echo free space anterior to the right ventricle likely represents a fat pad. Aorta Normal size aortic root and proximal ascending aorta. CONCLUSIONS 1. Normal left ventricle size and systolic function 2. Mild tricuspid regurgitation with trace to mild mitral regurgitation Previewed by: Dr. Amita Rasmussen MD (Electronically Signed) Final Date: 11 October 2022 12:10
== END | disposition home or self-care (01) ==
LOC: RADECHMAIN 08:22
PROVIDERS: ATTEND Internal Medicine
DX: R07.89 Other chest pain (principal)
CPT/HCPCS: 93017; 93306